=== PATIENT | female | born 1955 | race Caucasian/White ===

== ENCOUNTER 2019-02-20 15:46 | Emergency (ER) | payer OTHER ==
[~2019-02-20] VITALS: Ht 162.6 cm; Wt 96.2 kg
--- OUTSIDE RECORDS SUMMARY | 2019-02-20 15:50 | XMS REPORT ---
Author Author [facility] Address Unknown Phone Unavailable Care Team Providers [facility] Director Name Role Phone Unavailable Unavailable Payers Payer Name Policy Type Policy Number Effective Date Expiration Date Problems This patient has no known problems. Allergies, Adverse Reactions, Alerts Allergy Name Allergy Type Status Severity Reaction(s) Onset Date Inactive Date Treating Clinician Comments No Known Drug Allergies DA Active U 2019-01-26 00:00:00 adhesive tape DA Active MO 2019-01-26 00:00:00 latex DA Active SV 2019-01-19 00:00:00 No Known Drug Intolerances DA Active U 2006-06-06 00:00:00 No Known Contrast Allergies DA Active U 2006-06-04 00:00:00 No Known Drug Allergies DA Active U 2006-06-04 00:00:00 No Known Food Allergies DA Active U 2006-06-04 00:00:00 No Known Other Allergies DA Active U 2006-06-04 00:00:00 Medications This patient has no known medications. Encounters Start Date/Time End Date/Time Encounter Type Admission Type Attending Clinicians Care Facility Care Department Encounter ID 2018-09-25 15:35:00 2018-09-25 15:35:00 Outpatient [facility] 7500 Results Test Description Test Time Test Comments Text Results Atomic Results Result Comments BASIC METABOLIC PANEL 2019-01-27 06:25:00 SODIUM (test code=NA) 140 mmol/L 136-145 POTASSIUM (test code=K) 5.0 mmol/L 3.5-5.1 CHLORIDE (test code=CL) 105.0 mmol/L 98-107 CARBON DIOXIDE (test code=CO2) 25.7 mmol/L 21-32 GLUCOSE (test code=GLU) 110 mg/dL 70-110 BLOOD UREA NITROGEN (test code=BUN) 12 mg/dL 7-18 GLOMERULAR FILTRATION RATE (test code=GFR) 97.5 >60 Unit of measure: mL/min/1.73 [id number] Range:Healthy Adults >90 mL/min/1.73 m2 For Chronic Kidney Disease: Stage II Mild Decrease in GFR 60-90 Stage III Moderate Decrease in GFR 30-59 Stage IV Severe Decrease in GFR 15-29 Stage V Kidney Failure <15 CREATININE (test code=CREAT) 0.62 mg/dL 0.55-1.30 CALCIUM (test code=CA) 8.4 mg/dL 8.2-10.1 HGB [id number] 05:49:00* Test Item Value Reference Range Comments HEMOGLOBIN (test code=HGB) 9.7 g/dL 12-16 HEMATOCRIT (test code=HCT) 28.8 % 37-47 COMPREHENSIVE METABOLIC [id number] 17:58:00* Test Item Value Reference Range Comments SODIUM (test code=NA) 142 mmol/L 136-145 POTASSIUM (test code=K) 4.3 mmol/L 3.5-5.1 CHLORIDE (test code=CL) 104.0 mmol/L 98-107 CARBON DIOXIDE (test code=CO2) 28.1 mmol/L 21-32 GLUCOSE (test code=GLU) 87 mg/dL 70-110 BLOOD UREA NITROGEN (test code=BUN) 14 mg/dL 7-18 GLOMERULAR FILTRATION RATE (test code=GFR) 80.8 >60 Unit of measure: mL/min/1.73 [id number] Range:Healthy Adults >90 mL/min/1.73 m2 For Chronic Kidney Disease: Stage II Mild Decrease in GFR 60-90 Stage III Moderate Decrease in GFR 30-59 Stage IV Severe Decrease in GFR 15-29 Stage V Kidney Failure <15 CREATININE (test code=CREAT) 0.73 mg/dL 0.55-1.30 TOTAL PROTEIN (test code=PROT) 6.6 g/dL 6.4-8.2 ALBUMIN (test code=ALB) 3.9 g/dL 3.4-5.0 GLOBULIN (test code=GLOB) 2.7 g/dL 2.2-4.2 ALBUMIN/GLOBULIN RATIO (test code=A/G) 1.4 0.7-2.0 CALCIUM (test code=CA) 9.9 mg/dL 8.2-10.1 BILIRUBIN TOTAL (test code=BILT) 0.35 mg/dL 0.2-1.00 SGOT/AST (test code=AST) 21.0 U/L 15-37 SGPT/ALT (test code=ALT) 28.0 U/L 12-78 Please note new normal range. ALKALINE PHOSPHATASE TOTAL (test code=ALKP) 79 U/L 46-116 PROTHROMBIN [id number] 17:19:00* Test Item Value Reference Range Comments PROTHROMBIN TIME PATIENT (test code=PTP) 12.3 secs 10.1-12.5 INTERNATIONAL NORMAL RATIO (test code=INR) 1.10 <2.0 RECOMMENDED THERAPEUTIC RANGE FOR ORAL ANTICOAGULANTTREATMENT: CONDITION INRProphylaxis of venous thrombosis in 2.0 - 3.0 high-risk medical or surgical patientsTreatment of venous thrombosis 2.0 - 3.0Prevention of embolism 2.0 - 3.0Prevention of recurrent embolism, or 3.0 - 4.5 patients with mechanical prosthetic intravascular valves IS PATIENT ON ANTICOAGULANTS ? YLIST ANTICOAGULANT/ANTI PLT MEDICATION : Aspirin Has Lab been notified if Patient is on Heparin Drip? NOIf Yes, order CBC, OCCULT BLOOD, PT every other day NTHROMBOPLASTIN TIME [id number] 17:19:00* Test Item Value Reference Range Comments PTT ACTIVATED (test code=APTT) 34.0 secs 24.9-37.0 IS PATIENT ON ANTICOAGULANTS ? YLIST ANTICOAGULANT/ANTI PLT MEDICATION : Aspirin Has Lab been notified if Patient is on Heparin Drip? NOIf Yes, order CBC, OCCULT BLOOD, PT every other day N- USG NDL PLACEMENT (Bxg/Asp)2019-01-19 16:54:00 Patient Name: SELENA GARRETT Unit No: [id number] EXAMS: CPT CODE: [id number] USG NDL PLACEMENT (Bxg/Asp) 32160 INDICATION: Right k nee pain. PROCEDURE: Ultrasound guided cryoanalgesia (Iovera) of t he right anterior femoral cutaneous nerve and the superior and inferior branches of the infrapatellar branch of the saphenous nerve. THERMODYNAMIC PHYSICIST: Dr. Quiroz. MEDICATIONS: 1 % Lidocaine local anesthe zhou CONTRAST: None. COMPLICATION: None immediatel y evident. DESCRIPTION: After the procedure, including indicatio n and potential complications had been discussed with the patient and ques tions answered, written informed consent was obtained. The patient was th en taken to the ultrasound suite and placed on the table in supine p osition with their treatment leg fully extended. The skin of the right kn ee was evaluated sonographically. The skin over the anterior femoral cutan eous nerve and the superior and inferior branches of the infrapatellar bra nch of the saphenous nerve was marked. The skin was then prepped and drap ed sterilely. A time out was performed. After achieving 1% Lidoc analisa local anesthesia, the Iovera cryoanalgesia needle was inserted into t he top of the treatment area, and the treatment was initiated. The duratio n of one treatment cycle was 60 seconds. After each treatment cycle, the n eedle was removed and repositioned in an overlapping position over the adj acent previous treatment location. A new treatment cycle was started. The treatment cycle was repeated a total of 4 times along the treatment area t o treat the two branches of the infrapatellar saphenous nerve. The t reatment cycle was repeated a total of 4 times a long a second treatment area to treat the anterior femoral cutaneous nerve. The patent's skin was cleaned and the wound was covered with a band-aid. The patient wa s instructed to stand and mobilize the knee joint. No immediate complicat ion were observed. The patient tolerated the procedure well and was subse quently discharged in stable condition with instructions for follow up. Preprocedural pain level: 4/ 10 Postprocedural pain le ivette: 3/ 10 IMPRESSION: Cryoanalgesia of the r ight anterior femoral cutaneous nerve and the superior and inferior bran ches of the infrapatellar branch of the saphenous nerve as above. INDICATION: Left knee pain. PROCEDURE: Ultrasound guided cryoanalgesia (Iovera) of the left anterior femoral cutaneous ne rve and the superior and inferior [facility] NAM E: SELENA GARRETT [address] [facility] PHYS: Jose Arenas MD : [birth year] AGE: 63 SEX: F [place], [place] [address] 31 LOC: YREJI PHONE #: [phone] EXAM DATE: 01/19/2019 Maria R TATUS: FIDELINA APARICIO FAX #: [phone] RAD #: D/C DT PAGE 1 Signed Report (CO NTINUED) Patient Name: SELENA GARRETT Unit No: [id number] EXAMS: CPT CODE: [id number] USG NDL PLACEMENT (Bxg/Asp) 83085 <Continued> branches of the infrapatellar branch of the saphenous nerve. THERMODYNAMIC PHYSICIST: Dr. Quiroz. MEDICATIONS: 1 % Lidocaine local anesthesia CONTRAST: None. COMPLICATION: None immediately evident. DESCRIPTION: After the procedure, including indication and potential complications had been discussed with the patient and questions answered, written informed consent was obtained. The patient was then taken to the ultrasound suite and placed on the table in supine position with their treatment leg fully extend ed. The skin of the left knee was evaluated sonographically. The skin ov er the anterior femoral cutaneous nerve and the superior and inferior br anches of the infrapatellar branch of the saphenous nerve was marked. T he skin was then prepped and draped sterilely. A time out was performed . After achieving 1% Lidocaine local anesthesia, the Iovera cryoanalgesia needle was inserted into the top of the treatment area, and the treatment was initiated. The duration of one treatment cycle was 60 seconds. After each treatment cycle, the needle was removed and repositioned in an overlapping position over the adjacent previous augustus tment location. A new treatment cycle was started. The treatment cycle w as repeated a total of 4 times along the treatment area to treat the two branches of the infrapatellar saphenous nerve. The treatment cycle was repeated a total of 4 times a long a second treatment area to treat the anterior femoral cutaneous nerve. The patent's skin was nolberto viridiana and the wound was covered with a band-aid. The patient was instructe d to stand and mobilize the knee joint. No immediate complication were observed. The patient tolerated the procedure well and was subsequently discharged in stable condition with instructions for follow up. Preprocedural pain level: 4/ 10 Postprocedural pain level: 3/ 10 IMPRESSION: Cryoanalgesia of the left anterior femoral cutaneous nerve and the superior and inferior branches of the infrapatellar branch of the saphenous nerve as above. at 1654 Reported and signed by: Red Quiroz MD [facility] NAME: SELENA GARRETT [address] [place] [address] PH YS: Jose Vasquez MD : AGE: 63 SEX: F [place] [address] ACCT NO: [id number] LOC: Y.RAD PHONE #: [phone] EXAM DATE: 2018 STATUS: REG CLI FAX #: [phone] RAD #: D/ C DT PAGE 2 Signed Report (CONTINUED) Patient Name: SELENA GARRETT Unit No: [id number] EXAMS: CPT CODE: [id number] USG NDL PLACEMENT (Bxg/Asp) 82821 < Continued> CC: Jose Kline MD Technologist: LUCY GAY RDMS, RVT Transcribed D/ (482) tESTEFANY [facility] NAME: SELENA GARRETT [address] [place] [address] PHYS: Jose Vasquez MD : 1955 AGE: 63 SEX: F [place] [address] LOC: Y.RAD PHONE #: [phone] EXAM DATE: 01/19/2019 STATUS: REG CLI FAX #: [phone] RAD #: D/C DT PAGE 3 Signed Report Patient Name: SELENA GARRETT Unit No: [id number] EXAMS: CPT CODE: [id number] USG NDL PLACEMENT (Bxg/Asp) 93022 <Continued> Orig Print D/T: S: 01/19/2019 (7966) [facility] NAME: SELENA GARRETT [address] [place] [address] PHYS: SOFIA - Jose Lopez MD : 1955 AGE: 63 SEX: F [place] [address] LOC: Y. RAD PHONE #: [phone] EXAM DATE: 01/19/2019 STATUS: REG CLI FAX #: [phone] RAD #: D/C DT PAGE 4 Signed Report - USG NDL PLACEMENT (Bxg/Asp)2019-01-19 16:54:00 Patient Name: SELENA GARRETT Unit No: [id number] EXAMS: CPT CODE: [id number] USG NDL PLACEMENT (Bxg/Asp) 50420 INDICATION: Right knee pain. PROCEDURE: Ultrasound guided cryoanalgesia (Iovera) of the right anterior femoral cutaneous nerve and the superior and inferior branches of the infrapatellar branch of the saphenous nerve. THERMODYNAMIC PHYSICIST: Dr. Quiroz. MEDICATIONS: 1 % Lidocaine local anesthesia CONTRAST: None. COMPLICATION: None immediately evident. DESCRIPTION: After the procedure, including indication and potential complications had been discussed with the patient and questions answered, written informed consent was obtained. The patient was then taken to the ultrasound suite and placed on the table in supine position with their treatment leg fully extended. The skin of the right knee was evaluated sonographically. The skin over the anterior femoral cutaneous nerve and the superior and inferior branches of the infrapatellar branch of the saphenous nerve was marked. The skin was then prepped and draped sterilely. A time out was performed. After achieving 1% Lidoc analisa local anesthesia, the Iovera cryoanalgesia needle was inserted into t he top of the treatment area, and the treatment was initiated. The duratio n of one treatment cycle was 60 seconds. After each treatment cycle, the n eedle was removed and repositioned in an overlapping position over the adj acent previous treatment location. A new treatment cycle was started. The treatment cycle was repeated a total of 4 times along the treatment area t o treat the two branches of the infrapatellar saphenous nerve. The t reatment cycle was repeated a total of 4 times a long a second treatment area to treat the anterior femoral cutaneous nerve. The patent's skin was cleaned and the wound was covered with a band-aid. The patient wa s instructed to stand and mobilize the knee joint. No immediate complicat ion were observed. The patient tolerated the procedure well and was subse quently discharged in stable condition with instructions for follow up. Preprocedural pain level: 4/ 10 Postprocedural pain le ivette: 3/ 10 IMPRESSION: Cryoanalgesia of the r ight anterior femoral cutaneous nerve and the superior and inferior bran ches of the infrapatellar branch of the saphenous nerve as above. INDICATION: Left knee pain. PROCEDURE: Ultrasound guided cryoanalgesia (Iovera) of the left anterior femoral cutaneous ne rve and the superior and inferior [facility] NAM E: SELENA GARRETT [address] [facility] PHYS: Jose Arenas MD : [birth year] AGE: 63 SEX: F [place], [place] [address] 31 LOC: Y.RAD PHONE #: [phone] EXAM DATE: 01/19/2019 S TATUS: CRISTIANA CLI FAX #: [phone] RAD #: D/C DT PAGE 1 Signed Report (CO NTINUED) Patient Name: SELENA GARRETT Unit No: [id number] EXAMS: CPT CODE: [id number] USG NDL PLACEMENT (Bxg/Asp) 75277 <Continued> branches of the infrapatellar branch of the saphenous nerve. THERMODYNAMIC PHYSICIST: Dr. Quiroz. MEDICATIONS: 1 % Lidocaine local anesthesia CONTRAST: None. COMPLICATION: None immediately evident. DESCRIPTION: After the procedure, including indication and potential complications had been discussed with the patient and questions answered, written informed consent was obtained. The patient was then taken to the ultrasound suite and placed on the table in supine position with their treatment leg fully extend ed. The skin of the left knee was evaluated sonographically. The skin ov er the anterior femoral cutaneous nerve and the superior and inferior br anches of the infrapatellar branch of the saphenous nerve was marked. T he skin was then prepped and draped sterilely. A time out was performed . After achieving 1% Lidocaine local anesthesia, the Iovera cryoanalgesia needle was inserted into the top of the treatment area, and the treatment was initiated. The duration of one treatment cycle was 60 seconds. After each treatment cycle, the needle was removed and repositioned in an overlapping position over the adjacent previous augustus tment location. A new treatment cycle was started. The treatment cycle w as repeated a total of 4 times along the treatment area to treat the two branches of the infrapatellar saphenous nerve. The treatment cycle was repeated a total of 4 times a long a second treatment area to treat the anterior femoral cutaneous nerve. The patent's skin was nolberto viridiana and the wound was covered with a band-aid. The patient was instructe d to stand and mobilize the knee joint. No immediate complication were observed. The patient tolerated the procedure well and was subsequently discharged in stable condition with instructions for follow up. Preprocedural pain level: 4/ 10 Postprocedural pain level: 3/ 10 IMPRESSION: Cryoanalgesia of the left anterior femoral cutaneous nerve and the superior and inferior branches of the infrapatellar branch of the saphenous nerve as above. at 3134 Reported and signed by: Red Quiroz MD [facility] NAME: SELENA GARRETT [address] [facility] YS: Jose Vasquez MD : AGE: 63 SEX: F [place] [address] ACCT NO: [id number] LOC: Y.RAD PHONE #: [phone] EXAM DATE: 2018 STATUS: DEP CLI FAX #: [phone] RAD #: D/ C DT PAGE 2 Signed Report (CONTINUED) Patient Name: SELENA GARRETT Unit No: [id number] EXAMS: CPT CODE: [id number] USG NDL PLACEMENT (Bxg/Asp) 11623 < Continued> CC: Jose Kline MD Technologist: LUCY GAY RDMS, RVT Transcribed D/ (6455) t.[email or web address].L [facility] NAME: SELENA GARRETT [address] [facility] PHYS: Jose Vasquez MD : 1955 AGE: 63 SEX: F [place] [address] LOC: Y.RAD PHONE #: [phone] EXAM DATE: 01/19/2019 STATUS: DEP CLI FAX #: [phone] RAD #: D/C DT PAGE 3 Signed Report Patient Name: SELENA GARRETT Unit No: [id number] EXAMS: CPT CODE: [id number] USG NDL PLACEMENT (Bxg/Asp) 05376 <Continued> Orig Print D/T: S: 01/19/2019 (1659) [facility] NAME: SELENA GARRETT [address] [facility] PHYS: STOGR - Stoc Jose gleason MD : 1955 AGE: 63 SEX: F [place], [place] [address] LOC: Y. RAD PHONE #: [phone] EXAM DATE: 01/19/2019 STATUS: DEP CLI FAX #: [phone] RAD #: D/C DT PAGE 4 Signed Report - USG NDL PLACEMENT (Bxg/Asp)2019-01-19 16:54:00 Patient Name: SELENA GARRETT Unit No: [id number] EXAMS: CPT CODE: [id number] USG NDL PLACEMENT (Bxg/Asp) 05788 INDICATION: Right knee pain. PROCEDURE: Ultrasound guided cryoanalgesia (Iovera) of the right anterior femoral cutaneous nerve and the superior and inferior branches of the infrapatellar branch of the saphenous nerve. THERMODYNAMIC PHYSICIST: Dr. Quiroz. MEDICATIONS: 1 % Lidocaine local anesthesia CONTRAST: None. COMPLICATION: None immediately evident. DESCRIPTION: After the procedure, including indication and potential complications had been discussed with the patient and questions answered, written informed consent was obtained. The patient was then taken to the ultrasound suite and placed on the table in supine position with their treatment leg fully extended. The skin of the right knee was evaluated sonographically. The skin over the anterior femoral cutaneous nerve and the superior and inferior branches of the infrapatellar branch of the saphenous nerve was marked. The skin was then prepped and draped sterilely. A time out was performed. After achieving 1% Lidoc analisa local anesthesia, the Iovera cryoanalgesia needle was inserted into t he top of the treatment area, and the treatment was initiated. The duratio n of one treatment cycle was 60 seconds. After each treatment cycle, the n eedle was removed and repositioned in an overlapping position over the adj acent previous treatment location. A new treatment cycle was started. The treatment cycle was repeated a total of 4 times along the treatment area t o treat the two branches of the infrapatellar saphenous nerve. The t reatment cycle was repeated a total of 4 times a long a second treatment area to treat the anterior femoral cutaneous nerve. The patent's skin was cleaned and the wound was covered with a band-aid. The patient wa s instructed to stand and mobilize the knee joint. No immediate complicat ion were observed. The patient tolerated the procedure well and was subse quently discharged in stable condition with instructions for follow up. Preprocedural pain level: 4/ 10 Postprocedural pain le ivette: 3/ 10 IMPRESSION: Cryoanalgesia of the r ight anterior femoral cutaneous nerve and the superior and inferior bran ches of the infrapatellar branch of the saphenous nerve as above. INDICATION: Left knee pain. PROCEDURE: Ultrasound guided cryoanalgesia (Iovera) of the left anterior femoral cutaneous ne rve and the art and inferior [facility] NAM E: SELENA GARRETT [address] [facility] PHYS: Jose Arenas MD : [birth year] AGE: 63 SEX: F [place], [place] [address] 31 LOC: Y.RAD PHONE #: [phone] EXAM DATE: 01/19/2019 S TATUS: REG CLI FAX #: [phone] RAD #: D/C DT PAGE 1 Signed Report (CO NTINUED) Patient Name: SELENA GARRETT Unit No: [id number] EXAMS: CPT CODE: [id number] USG NDL PLACEMENT (Bxg/Asp) 83372 <Continued> branches of the infrapatellar branch of the saphenous nerve. THERMODYNAMIC PHYSICIST: Dr. Quiroz. MEDICATIONS: 1 % Lidocaine local anesthesia CONTRAST: None. COMPLICATION: None immediately evident. DESCRIPTION: After the procedure, including indication and potential complications had been discussed with the patient and questions answered, written informed consent was obtained. The patient was then taken to the ultrasound suite and placed on the table in supine position with their treatment leg fully extend ed. The skin of the left knee was evaluated sonographically. The skin ov er the anterior femoral cutaneous nerve and the superior and inferior br anches of the infrapatellar branch of the saphenous nerve was marked. T he skin was then prepped and draped sterilely. A time out was performed . After achieving 1% Lidocaine local anesthesia, the Iovera cryoanalgesia needle was inserted into the top of the treatment area, and the treatment was initiated. The duration of one treatment cycle was 60 seconds. After each treatment cycle, the needle was removed and repositioned in an overlapping position over the adjacent previous augustus tment location. A new treatment cycle was started. The treatment cycle w as repeated a total of 4 times along the treatment area to treat the two branches of the infrapatellar saphenous nerve. The treatment cycle was repeated a total of 4 times a long a second treatment area to treat the anterior femoral cutaneous nerve. The patent's skin was nolberto viridiana and the wound was covered with a band-aid. The patient was instructe d to stand and mobilize the knee joint. No immediate complication were observed. The patient tolerated the procedure well and was subsequently discharged in stable condition with instructions for follow up. Preprocedural pain level: 4/ 10 Postprocedural pain level: 3/ 10 IMPRESSION: Cryoanalgesia of the left anterior femoral cutaneous nerve and the superior and inferior branches of the infrapatellar branch of the saphenous nerve as above. at 3586 Reported and signed by: Red Quiroz MD [facility] NAME: SELENA GARRETT [address] [facility] PH YS: Jose Vasquez MD : AGE: 63 SEX: F [place] [address] ACCT NO: [id number] LOC: Y.RAD PHONE #: [phone] EXAM DATE: 2018 STATUS: REG CLI FAX #: [phone] RAD #: D/ C DT PAGE 2 Signed Report (CONTINUED) Patient Name: SELENA GARRETT Unit No: [id number] EXAMS: CPT CODE: [id number] USG NDL PLACEMENT (Bxg/Asp) 37130 < Continued> CC: Jose Kline MD Technologist: LUCY GAY RDMS, RVT Transcribed D/ (6298) t.KEVIN.JCL [facility] NAME: SELENA GARRETT [address] [facility] PHYS: Jose Vasquez MD : 1955 AGE: 63 SEX: F [place] [address] LOC: Y.RAD PHONE #: [phone] EXAM DATE: 01/19/2019 STATUS: REG CLI FAX #: [phone] RAD #: D/C DT PAGE 3 Signed Report Patient Name: SELENA GARRETT Unit No: [id number] EXAMS: CPT CODE: [id number] USG NDL PLACEMENT (Bxg/Asp) 89142 <Continued> Orig Print D/T: S: 01/19/2019 (1657) [facility] NAME: SELENA GARRETT [address] [facility] PHYS: [facility] Jose Lopez MD : 1955 AGE: 63 SEX: F [place] [address] LOC: Y. RAD PHONE #: [phone] EXAM DATE: 01/19/2019 STATUS: REG CLI FAX #: [phone] RAD #: D/C DT PAGE 4 Signed Report - USG NDL PLACEMENT (Bxg/Asp)2019-01-19 16:54:00 Patient Name: SELENA GARRETT Unit No: [id number] EXAMS: CPT CODE: [id number] USG NDL PLACEMENT (Bxg/Asp) 16269 INDICATION: Right knee pain. PROCEDURE: Ultrasound guided cryoanalgesia (Iovera) of the right anterior femoral cutaneous nerve and the superior and inferior branches of the infrapatellar branch of the saphenous nerve. THERMODYNAMIC PHYSICIST: Dr. Quiroz. MEDICATIONS: 1 % Lidocaine local anesthesia CONTRAST: None. COMPLICATION: None immediately evident. DESCRIPTION: After the procedure, including indication and potential complications had been discussed with the patient and questions answered, written informed consent was obtained. The patient was then taken to the ultrasound suite and placed on the table in supine position with their treatment leg fully extended. The skin of the right knee was evaluated sonographically. The skin over the anterior femoral cutaneous nerve and the superior and inferior branches of the infrapatellar branch of the saphenous nerve was marked. The skin was then prepped and draped sterilely. A time out was performed. After achieving 1% Lidoc analisa local anesthesia, the Iovera cryoanalgesia needle was inserted into t he top of the treatment area, and the treatment was initiated. The duratio n of one treatment cycle was 60 seconds. After each treatment cycle, the n eedle was removed and repositioned in an overlapping position over the adj acent previous treatment location. A new treatment cycle was started. The treatment cycle was repeated a total of 4 times along the treatment area t o treat the two branches of the infrapatellar saphenous nerve. The t reatment cycle was repeated a total of 4 times a long a second treatment area to treat the anterior femoral cutaneous nerve. The patent's skin was cleaned and the wound was covered with a band-aid. The patient wa s instructed to stand and mobilize the knee joint. No immediate complicat ion were observed. The patient tolerated the procedure well and was subse quently discharged in stable condition with instructions for follow up. Preprocedural pain level: 4/ 10 Postprocedural pain le ivette: 3/ 10 IMPRESSION: Cryoanalgesia of the r ight anterior femoral cutaneous nerve and the superior and inferior bran ches of the infrapatellar branch of the saphenous nerve as above. INDICATION: Left knee pain. PROCEDURE: Ultrasound guided cryoanalgesia (Iovera) of the left anterior femoral cutaneous ne rve and the art and inferior [facility] NAM E: SELENA GARRETT [address] [facility] PHYS: Jose Arenas MD : [birth year] AGE: 63 SEX: F [place], [place] [address] LOC: Y.RAD PHONE #: [phone] EXAM DATE: 01/19/2019 S TATUS: DEP CLI FAX #: [phone] RAD #: D/C DT PAGE 1 Signed Report (CO NTINUED) Patient Name: SELENA GARRETT Unit No: [id number] EXAMS: CPT CODE: [id number] USG NDL PLACEMENT (Bxg/Asp) 90690 <Continued> branches of the infrapatellar branch of the saphenous nerve. THERMODYNAMIC PHYSICIST: Dr. Quiroz. MEDICATIONS: 1 % Lidocaine local anesthesia CONTRAST: None. COMPLICATION: None immediately evident. DESCRIPTION: After the procedure, including indication and potential complications had been discussed with the patient and questions answered, written informed consent was obtained. The patient was then taken to the ultrasound suite and placed on the table in supine position with their treatment leg fully extend ed. The skin of the left knee was evaluated sonographically. The skin ov er the anterior femoral cutaneous nerve and the superior and inferior br anches of the infrapatellar branch of the saphenous nerve was marked. T he skin was then prepped and draped sterilely. A time out was performed . After achieving 1% Lidocaine local anesthesia, the Iovera cryoanalgesia needle was inserted into the top of the treatment area, and the treatment was initiated. The duration of one treatment cycle was 60 seconds. After each treatment cycle, the needle was removed and repositioned in an overlapping position over the adjacent previous augustus tment location. A new treatment cycle was started. The treatment cycle w as repeated a total of 4 times along the treatment area to treat the two branches of the infrapatellar saphenous nerve. The treatment cycle was repeated a total of 4 times a long a second treatment area to treat the anterior femoral cutaneous nerve. The patent's skin was nolberto viridiana and the wound was covered with a band-aid. The patient was instructe d to stand and mobilize the knee joint. No immediate complication were observed. The patient tolerated the procedure well and was subsequently discharged in stable condition with instructions for follow up. Preprocedural pain level: 4/ 10 Postprocedural pain level: 3/ 10 IMPRESSION: Cryoanalgesia of the left anterior femoral cutaneous nerve and the superior and inferior branches of the infrapatellar branch of the saphenous nerve as above. at 9274 Reported and signed by: Red Quiroz MD [facility] NAME: SELENA GARRETT [address] [facility] PH YS: Jose Vasquez MD : AGE: 63 SEX: F [place], [place] [address] ACCT NO: [id number] LOC: Y.RAD PHONE #: [phone] EXAM DATE: 2018 STATUS: DEP CLI FAX #: [phone] RAD #: D/ C DT PAGE 2 Signed Report (CONTINUED) Patient Name: SELENA GARRETT Unit No: [id number] EXAMS: CPT CODE: [id number] USG NDL PLACEMENT (Bxg/Asp) 24482 < Continued> CC: Jose Kline MD Technologist: LUCY GAY RDMS, RVT Transcribed D/ (4654) [email or web address] [facility] NAME: SELENA GARRETT [address] [place] [address] PHYS: Jose Vasquez MD : 1955 AGE: 63 SEX: F [place] [address] LOC: Y.RAD PHONE #: [phone] EXAM DATE: 01/19/2019 STATUS: DEP CLI FAX #: [phone] RAD #: D/C DT PAGE 3 Signed Report Patient Name: SELENA GARRETT Unit No: [id number] EXAMS: CPT CODE: [id number] USG NDL PLACEMENT (Bxg/Asp) 11277 <Continued> Orig Print D/T: S: 01/19/2019 (2712) [facility] NAME: SELENA GARRETT [address] [place] [address] PHYS: Jose Zhang MD : 1955 AGE: 63 SEX: F [place] [address] LOC: Y. RAD PHONE #: [phone] EXAM DATE: 01/19/2019 STATUS: DEP CLI FAX #: [phone] RAD #: D/C DT PAGE 4 Signed Report CBC W/AUTO [id number] 16:46:00* Test Item Value Reference Range Comments WHITE BLOOD CELL (test code=WBC) 7.7 K/mm3 5.8-11.0 RED BLOOD CELL (test code=RBC) 4.07 M/mm3 4.2-5.4 HEMOGLOBIN (test code=HGB) 12.9 g/dL 12-16 HEMATOCRIT (test code=HCT) 38.3 % 37-47 MEAN CELL VOLUME (test code=MCV) 94 fL 80-98 MEAN CELL HGB (test code=MCH) 31.7 pg 27-34 MEAN CELL HGB CONCENTRATION (test code=MCHC) 33.7 g/dL 30.8-34.1 RED CELL DISTRIBUTION WIDTH (test code=RDW) 14.0 % 11-16 PLT (test code=PLT) 285 K/mm3 130-400 MEAN PLATELET VOLUME (test code=MPV) 9.8 fL 8.9-12.1 NEUTROPHIL % (test code=NT%) 63.0 % 45-70 LYMPHOCYTE % (test code=LY%) 29.9 % 20-40 MONOCYTE % (test code=MO%) 5.5 % 3-10 EOSINOPHIL % (test code=EO%) 1.2 % 1-5 BASOPHIL % (test code=BA%) 0.3 % 0.0-1.1 NEUTROPHIL # (test code=NT#) 4.86 K/mm3 2.00-7.50 LYMPHOCYTE # (test code=LY#) 2.30 K/mm3 1.50-4.00 MONOCYTE # (test code=MO#) 0.42 K/mm3 0.2-0.8 EOSINOPHIL # (test code=EO#) 0.09 K/mm3 0.04-0.4 BASOPHIL # (test code=BA#) 0.02 K/mm3 0.02-0.10 MANUAL DIFF REQUIRED (test code=MDIFF) NO MANUAL DIFF NUCLEATED RED BLOOD CELL (test code=NRBC) 0 % 0-0
== END 2019-02-20 18:06 | disposition home or self-care (01) ==
LOC: ER 15:46
DX: M79.662 Pain in left lower leg (principal); M79.661 Pain in right lower leg; I10 Essential (primary) hypertension; E78.5 Hyperlipidemia, unspecified; Z96.653 Presence of artificial knee joint, bilateral
CPT/HCPCS: 93970; 99284

== ENCOUNTER 2022-12-25 10:43 | Outpatient (RCR) | payer MEDICARE, OTHER | END 2023-01-15 | LOC: PT 10:43 | PROVIDERS: ATTEND Physician Assistant | DX: S42.291D Other displaced fracture of upper end of right humerus, subsequent encounter for fracture with routine healing (principal); M62.81 Muscle weakness (generalized); M25.511 Pain in right shoulder; M25.611 Stiffness of right shoulder, not elsewhere classified ==

== ENCOUNTER 2023-01-28 12:55 | Outpatient (RCR) | payer MEDICARE, OTHER | END 2023-02-14 | LOC: PT 12:55 | PROVIDERS: ATTEND Physician Assistant | DX: S42.291D Other displaced fracture of upper end of right humerus, subsequent encounter for fracture with routine healing (principal); M62.81 Muscle weakness (generalized); M25.511 Pain in right shoulder; M25.611 Stiffness of right shoulder, not elsewhere classified ==